=== PATIENT | female | born 1980 | race Caucasian/White ===

== ENCOUNTER 2023-11-24 03:07 | Emergency (ER) | payer OTHER | END 2023-11-24 03:38 | disposition home or self-care (01) | LOC: CSHERS 03:07 | DX: Z30.431 Encounter for routine checking of intrauterine contraceptive device (principal); I10 Essential (primary) hypertension; F17.210 Nicotine dependence, cigarettes, uncomplicated; Z79.899 Other long term (current) drug therapy | CPT/HCPCS: 99283 ==